=== PATIENT | male | born 1945 | race Two or more races ===

== ENCOUNTER 2023-06-04 11:00 | Outpatient (CLI) | payer OTHER ==
[~2023-06-04] VITALS: Ht 177.8 cm; Wt 106.6 kg
[2023-06-04] MEDS ORDERED: CHOL200021 PO (16:12)
[2023-06-04] MEDS ORDERED: OMEP20TA PO (16:12)
[2023-06-04] MEDS ORDERED: RAME8TAB17 PO (16:12)
[2023-06-04] MEDS ORDERED: TAMS0.4C36 PO (16:12)
[2023-06-04] MEDS ORDERED: GABA-1250 PO (16:12)
[2023-06-04] MEDS ORDERED: METF-370 PO (16:12)
[2023-06-04] MEDS ORDERED: TRIATAB3 OR (16:12)
[2023-06-04] MEDS ORDERED: LOSA25TA15 PO (16:12)
== END 2023-06-04 12:04 | disposition home or self-care (01) ==
LOC: LAB 11:00 → EDSTATUS 06-08 13:15
PROVIDERS: ATTEND Orthopaedic Surgery
DX: Z01.818 Encounter for other preprocedural examination (principal); Z96.652 Presence of left artificial knee joint
CPT/HCPCS: 86850; 86900; 86901

== ENCOUNTER 2023-08-04 10:40 | Observation (INO) | payer OTHER, MEDICAID ==
[~2023-08-04] VITALS: Ht 177.8 cm; Wt 104.0 kg
[~2023-08-04 10:40] MED LIST: CHOL200021 PO; GABA-1250 PO; LOSA25TA15 PO; METF-370 PO; OMEP20TA PO; RAME8TAB17 PO; TAMS0.4C36 PO; TRIATAB3 OR
[2023-08-04 11:29] LABS: Basophils # (auto) 0 10 ^3/uL (0-0.2); Basophils % (auto) 0.4 % (0.0-2.0); Eosinophils # (auto) 0.1 10 ^3/uL (0-0.8); Hematocrit 35.5 % (41.0-53.0); Hemoglobin 12.2 g/dL (13.5-17.5); Lymphocytes # (auto) 0.9 10 ^3/uL (0.4-5.4); Lymphocytes % (auto) 8.1 % (10.0-50.0); Mean Corpuscular Hgb Conc. 34.3 g/dL (32.0-36.0); Mean Corpuscular Volume 99.1 fL (80.0-100.0); Monocytes # (auto) 0.9 10 ^3/uL (0-1.3); Monocytes % (auto) 8.5 % (0.0-12.0); Neutrophils # (auto) 8.9 10 ^3/uL (1.6-8.6); Red Blood Cells 3.58 10^6/uL (4.5-5.90); Red Cell Distribution Width 13.7 % (11.8-14.3); White Blood Cell 10.8 10^3/uL (4.4-10.8)
[2023-08-04] MEDS ORDERED: SODIUM CHLORIDE 0.9% 1,000 ML IVB ONE (11:30)
[2023-08-04 11:45] LABS: Magnesium 1.7 mg/dL (1.6-2.6)
[2023-08-04 11:46] LABS: Alanine Aminotransferase 12 U/L (7-40); Alkaline Phosphatase 65 U/L (46-116); Anion Gap 11 (5-15); Aspartate Aminotransferase 13 U/L (13-40); BUN/Creatinine Ratio 25.2 (10.0-20.0); Calcium 8.2 mg/dL (8.7-10.4); Carbon Dioxide 17 mmol/L (20-30); Chloride 100 mmol/L (98-107); Glucose 127 mg/dL (74-106); Potassium 2.9 mmol/L (3.5-5.1); Sodium 128 mmol/L (136-145)
[2023-08-04 11:47] LABS: Albumin 4.2 g/dL (3.2-4.8); Bilirubin, Total 1.2 mg/dL (0.2-1.0); Total Protein 7.1 g/dL (5.7-8.2)
[2023-08-04 12:00] VITALS: PULSE 73; RESP 12; O2SAT 98
[2023-08-04 12:14] LABS: Blood Urea Nitrogen 82 mg/dL (9-23)
[2023-08-04] MEDS ORDERED: SODIUM CHLORIDE 0.9% 1,000 ML IV SCH (13:30)
[2023-08-04] MEDS ORDERED: PANTOPRAZOLE 40mg/50ML NS AE 50 ML IV ONE (13:30)
[2023-08-04] MEDS ORDERED: PANTOPRAZOLE 80 MG in SODIUM CHL 0.9% 100 ML IV ONE (13:30)
[2023-08-04] MEDS ORDERED: OCTREOTIDE ACETATE 100 MCG in SODIUM CHL 0.9% 50 ML IV ONE (13:30)
[2023-08-04] MEDS ORDERED: metroNIDAZOLE 500MG/100ML 100 ML IV ONE (13:45)
[2023-08-04 14:34] LABS: % Iron Saturation 20.8 % (20-55)
[2023-08-04] MEDS: OCTREOTIDE ACETATE 500 MCG in SODIUM CHL 0.9% 99 ML IV SCH (15:55)
[2023-08-04] MEDS ORDERED: ACETAMINOPHEN 325 MG TAB PO PRN (16:00)
[2023-08-04] MEDS ORDERED: cefTRIAXone 1GM/50ML D5W 50 ML IV SCH (19:00)
[2023-08-04 20:00] VITALS: PULSE 70; RESP 13; O2SAT 96
[2023-08-04] MEDS ORDERED: POTASSIUM CHL 20MEQ/100ML 100 ML IV ONE (21:00)
[2023-08-04 21:07] LABS: Rapid Influenza A Negative (Negative); Rapid Influenza B Negative (Negative)
[2023-08-04 21:08] LABS: COVID19 ANTIGEN SOFIA FIA NEGATIVE (NEGATIVE)
[2023-08-04] MEDS: SODIUM CHLORIDE 0.9% 1,000 ML IV SCH (21:32)
[2023-08-04] MEDS ORDERED: PIPERACILLIN-TAZOB 3.375GM 100 ML IV SCH (21:45)
[2023-08-04] MEDS ORDERED: PIPERACILLIN-TAZOB 3.375GM 100 ML IV ONE (22:15)
[2023-08-04 22:20] LABS: Urine Bacteria NONE SEEN /hpf (None Seen); Urine Blood Negative /uL (Negative); Urine Clarity Clear (Clear); Urine Color Yellow (Yellow); Urine Hyaline Cast FEW /lpf (0 - 2); Urine Protein, UAD TRACE (Negative); Urine Specific Gravity 1.011 (1.001-1.035); Urine Urobilinogen Normal (Negative); Urine WBC 1 /hpf (0 - 3)
[2023-08-04] MEDS: OSELTAMIVIR 75 MG CAP PO SCH (22:22)
[2023-08-04] MEDS: GABAPENTIN 300 MG CAP PO SCH (22:23)
[2023-08-04 22:29] LABS: INR 1.12 (0.9-1.15); Prothrombin Time 11.7 sec (9.3-11.8)
[2023-08-04 22:44] VITALS: BP 99/69; PULSE 71; RESP 20; O2SAT 96
[2023-08-05] VITALS (7 sets, daily range): BP systolic 86–114; BP diastolic 61–73; PULSE 70–93; RESP 12–20; TEMP 97.7–98.1; O2SAT 93–100
[2023-08-05] MEDS ORDERED: OCTREOTIDE ACETATE 500 MCG/ML VL ONE (00:01)
[2023-08-05] MEDS: OCTREOTIDE ACETATE 500 MCG in SODIUM CHL 0.9% 99 ML IV SCH ×3 (00:13→19:30)
[2023-08-05 00:18] LABS: Alanine Aminotransferase 11 U/L (7-40); Albumin 3.9 g/dL (3.2-4.8); Alkaline Phosphatase 65 U/L (46-116); Anion Gap 12 (5-15); Aspartate Aminotransferase 12 U/L (13-40); BUN/Creatinine Ratio 25.8 (10.0-20.0); Blood Urea Nitrogen 73 mg/dL (9-23); Calcium 8.1 mg/dL (8.7-10.4); Carbon Dioxide 16 mmol/L (20-30); Chloride 103 mmol/L (98-107); Glucose 130 mg/dL (74-106); Potassium 2.7 mmol/L (3.5-5.1); Sodium 131 mmol/L (136-145)
[2023-08-05 00:19] LABS: Bilirubin, Total 1.5 mg/dL (0.2-1.0); Total Protein 6.8 g/dL (5.7-8.2)
[2023-08-05] MEDS ORDERED: POTASSIUM EFFERVESENT TAB 25 MEQ PO ONE (00:45)
[2023-08-05] MEDS ORDERED: POTASSIUM CHL 20MEQ/100ML 100 ML IV ONE ×2 (00:45→22:45)
[2023-08-05] MEDS ORDERED: SODIUM CHLORIDE 0.9% 1,000 ML IV ONE ×2 (05:15→18:00)
[2023-08-05] MEDS: PIPERACILLIN-TAZOB 3.375GM 100 ML IV SCH ×2 (05:38→13:59)
[2023-08-05 06:50] LABS: Alanine Aminotransferase 10 U/L (7-40); Albumin 3.8 g/dL (3.2-4.8); Alkaline Phosphatase 64 U/L (46-116); Anion Gap 10 (5-15); Aspartate Aminotransferase 13 U/L (13-40); BUN/Creatinine Ratio 31.2 (10.0-20.0); Blood Urea Nitrogen 68 mg/dL (9-23); Carbon Dioxide 18 mmol/L (20-30); Chloride 105 mmol/L (98-107); Glucose 132 mg/dL (74-106); Magnesium 1.8 mg/dL (1.6-2.6); Potassium 3.7 mmol/L (3.5-5.1); Sodium 133 mmol/L (136-145)
[2023-08-05 06:51] LABS: Bilirubin, Total 1.9 mg/dL (0.2-1.0); Total Protein 6.6 g/dL (5.7-8.2)
[2023-08-05 06:57] LABS: Mean Corpuscular Hemoglobin 35.3 pg (28.0-32.0); Neutrophils # (auto) 7.1 10 ^3/uL (1.6-8.6)
[2023-08-05 07:00] LABS: Basophils # (auto) 0 10 ^3/uL (0-0.2); Basophils % (auto) 0.5 % (0.0-2.0); Eosinophils # (auto) 0.2 10 ^3/uL (0-0.8); Eosinophils % (auto) 2.5 % (0.0-7.0); Hemoglobin 11.8 g/dL (13.5-17.5); Lymphocytes # (auto) 1.3 10 ^3/uL (0.4-5.4); Lymphocytes % (auto) 13.4 % (10.0-50.0); Mean Corpuscular Hgb Conc. 34.7 g/dL (32.0-36.0); Mean Corpuscular Volume 101.8 fL (80.0-100.0); Monocytes % (auto) 10.2 % (0.0-12.0); Neutrophils % (auto) 73.4 % (37.0-80.0); Nucleated Red Blood Cells % 0.1 %; Red Blood Cells 3.34 10^6/uL (4.5-5.90); White Blood Cell 9.7 10^3/uL (4.4-10.8)
[2023-08-05] MEDS: OSELTAMIVIR 75 MG CAP PO SCH ×2 (09:38→22:56)
[2023-08-05] MEDS: SODIUM CHLORIDE 0.9% 1,000 ML IV SCH ×2 (09:44→17:36)
[2023-08-05] MEDS: PANTOPRAZOLE 40mg/50ML NS AE 50 ML IV SCH ×2 (17:26→22:56)
[2023-08-05] MEDS ORDERED: TAMSULOSIN HYDROCHLORIDE 0.4 MG CAP PO SCH (18:00)
[2023-08-05] MEDS ORDERED: METR-344 PO (18:00)
[2023-08-05] MEDS ORDERED: LEVO750T8 PO (18:00)
[2023-08-05 20:05] LABS: Chloride 106 mmol/L (98-107); Potassium 2.9 mmol/L (3.5-5.1); Sodium 133 mmol/L (136-145)
[2023-08-05 20:06] LABS: Anion Gap 9 (5-15); Calcium 8.3 mg/dL (8.7-10.4); Carbon Dioxide 18 mmol/L (20-30)
[2023-08-05 20:11] LABS: BUN/Creatinine Ratio 26.9 (10.0-20.0); Glucose 180 mg/dL (74-106)
[2023-08-05 20:49] LABS: Eosinophils # (auto) 0.2 10 ^3/uL (0-0.8); Hemoglobin 11.8 g/dL (13.5-17.5); Neutrophils # (auto) 5.9 10 ^3/uL (1.6-8.6); Nucleated Red Blood Cells % 0.1 %
[2023-08-05 20:51] LABS: Basophils # (auto) 0 10 ^3/uL (0-0.2); Basophils % (auto) 0.4 % (0.0-2.0); Eosinophils % (auto) 1.9 % (0.0-7.0); Hematocrit 33.7 % (41.0-53.0); Lymphocytes # (auto) 1.4 10 ^3/uL (0.4-5.4); Lymphocytes % (auto) 16.6 % (10.0-50.0); Mean Corpuscular Hemoglobin 35.6 pg (28.0-32.0); Mean Corpuscular Hgb Conc. 35.1 g/dL (32.0-36.0); Mean Corpuscular Volume 101.5 fL (80.0-100.0); Monocytes % (auto) 11.9 % (0.0-12.0); Neutrophils % (auto) 69.2 % (37.0-80.0); Red Blood Cells 3.32 10^6/uL (4.5-5.90); Red Cell Distribution Width 13.7 % (11.8-14.3); White Blood Cell 8.5 10^3/uL (4.4-10.8)
[2023-08-05 20:53] LABS: Blood Urea Nitrogen 53 mg/dL (9-23)
[2023-08-05 22:31] LABS: Creatinine, Urine 57.97 mg/dL (30.0-125.0)
[2023-08-05] MEDS ORDERED: POTASSIUM CHL 20 Meq TABLET PO ONE (22:45)
[2023-08-05] MEDS: GABAPENTIN 300 MG CAP PO SCH (22:56)
[2023-08-06] MEDS: PIPERACILLIN-TAZOB 3.375GM 100 ML IV SCH ×3 (00:32→14:00)
[2023-08-06] MEDS: SODIUM CHLORIDE 0.9% 1,000 ML IV SCH ×2 (03:15→13:30)
[2023-08-06] MEDS: PANTOPRAZOLE 40mg/50ML NS AE 50 ML IV SCH (03:15)
[2023-08-06 05:00] VITALS: BP 123/85; PULSE 70; RESP 16; TEMP 98.2; O2SAT 97
[2023-08-06 05:37] LABS: Basophils # (auto) 0 10 ^3/uL (0-0.2); Basophils % (auto) 0.5 % (0.0-2.0); Eosinophils # (auto) 0.2 10 ^3/uL (0-0.8); Eosinophils % (auto) 1.9 % (0.0-7.0); Hemoglobin 11.4 g/dL (13.5-17.5); Monocytes # (auto) 1.1 10 ^3/uL (0-1.3); Nucleated Red Blood Cells % 0.1 %
[2023-08-06 05:41] LABS: Hematocrit 32.8 % (41.0-53.0); Lymphocytes # (auto) 1.7 10 ^3/uL (0.4-5.4); Lymphocytes % (auto) 19.2 % (10.0-50.0); Mean Corpuscular Hemoglobin 34.8 pg (28.0-32.0); Mean Corpuscular Hgb Conc. 34.9 g/dL (32.0-36.0); Mean Corpuscular Volume 99.8 fL (80.0-100.0); Monocytes % (auto) 12.1 % (0.0-12.0); Neutrophils % (auto) 66.3 % (37.0-80.0); Red Blood Cells 3.28 10^6/uL (4.5-5.90); Red Cell Distribution Width 14.1 % (11.8-14.3); White Blood Cell 9.1 10^3/uL (4.4-10.8)
[2023-08-06 05:59] LABS: Alanine Aminotransferase 11 U/L (7-40); Albumin 3.7 g/dL (3.2-4.8); Alkaline Phosphatase 62 U/L (46-116); Anion Gap 11 (5-15); Aspartate Aminotransferase 13 U/L (13-40); BUN/Creatinine Ratio 24.2 (10.0-20.0); Calcium 8.5 mg/dL (8.5-10.1); Carbon Dioxide 17 mmol/L (20-30); Chloride 107 mmol/L (98-107); Glucose 135 mg/dL (74-106); Potassium 3.1 mmol/L (3.5-5.1); Sodium 135 mmol/L (136-145)
[2023-08-06 06:00] LABS: Bilirubin, Total 1.2 mg/dL (0.2-1.0); Total Protein 6.4 g/dL (5.7-8.2)
[2023-08-06 06:19] LABS: Blood Urea Nitrogen 39 mg/dL (9-23)
[2023-08-06] MEDS ORDERED: POTASSIUM CHL 20 Meq TABLET PO ONE (06:45)
[2023-08-06] MEDS ORDERED: OMEP20TA44 PO (07:27)
[2023-08-06 08:00] VITALS: BP 112/76; PULSE 76; PULSE 94; RESP 12; RESP 18; TEMP 97.8; O2SAT 100
[2023-08-06 09:00] VITALS: BP 107/76; PULSE 72; RESP 22; TEMP 97.4; O2SAT 97
[2023-08-06] MEDS ORDERED: diphenhdrAMINE HCL 50 MG/1 ML VL ONE (09:32)
[2023-08-06] MEDS ORDERED: LIDOCAINE VISCOUS 2% 15ML UD ONE (09:32)
[2023-08-06] MEDS ORDERED: MIDAZOLAM HCL 5 MG/ML-1ML VIAL ONE (09:32)
[2023-08-06] MEDS ORDERED: SODIUM CHLORIDE LOCK 10 ML ONE (09:32)
[2023-08-06] MEDS ORDERED: fentaNYL CITRATE 100 MCG/2 ML VL ONE (09:34)
[2023-08-06] MEDS ORDERED: PANTOPRAZOLE 40 MG TAB PO SCH (10:00)
[2023-08-06 12:16] VITALS: BP 114/73; PULSE 72; RESP 18; TEMP 97.3; O2SAT 95
[2023-08-06 13:00] VITALS: BP 119/70; PULSE 72; RESP 18; TEMP 97.3; O2SAT 95
== END 2023-08-06 14:00 | disposition home or self-care (01) ==
LOC: EDBD 10:40 → ER 10:40 → TELE 13:23 → TELE-WESTW 22:37
PROVIDERS: ADMIT Student in an Organized Health Care Education/Training Program; ATTEND Student in an Organized Health Care Education/Training Program
DX: K92.0 Hematemesis (principal); Z20.822 Contact with and (suspected) exposure to COVID-19; E80.6 Other disorders of bilirubin metabolism; I71.20 Thoracic aortic aneurysm, without rupture, unspecified; I95.9 Hypotension, unspecified; N40.0 Benign prostatic hyperplasia without lower urinary tract symptoms; K57.32 Diverticulitis of large intestine without perforation or abscess without bleeding; J10.1 Influenza due to other identified influenza virus with other respiratory manifestations; N17.9 Acute kidney failure, unspecified; D50.9 Iron deficiency anemia, unspecified; E86.0 Dehydration; I48.91 Unspecified atrial fibrillation; E87.6 Hypokalemia; E87.1 Hypo-osmolality and hyponatremia; K92.1 Melena; E11.42 Type 2 diabetes mellitus with diabetic polyneuropathy; K21.9 Gastro-esophageal reflux disease without esophagitis; M79.10 Myalgia, unspecified site; I10 Essential (primary) hypertension; Z79.84 Long term (current) use of oral hypoglycemic drugs; Z95.0 Presence of cardiac pacemaker
CPT/HCPCS: 36415; 71046; 74176; 80048; 80053; 81001; 82570; 82728; 83540; 83550; 83605; 83690; 83735; 84300; 85025; 85045; 85610; 86850; 86900; 86901; 86920; 87040; 87426; 87804; 96361; 96365; 96366; 96368; 96376; 99291; C9113; G0378; J1200; J2250; J2543; J3010; J3480; J3490; J7030

== ENCOUNTER 2023-09-18 02:09 | Emergency (ER) | payer OTHER, MEDICAID ==
[~2023-09-18] VITALS: Ht 182.9 cm; Wt 90.0 kg
[~2023-09-18 02:09] MED LIST changes: -OMEP20TA PO; +PANT40TA2 PO; -TRIATAB3 OR
[2023-09-18 03:23] LABS: Basophils # (auto) 0 10 ^3/uL (0-0.2); Eosinophils # (auto) 0 10 ^3/uL (0-0.8); Hemoglobin 12.5 g/dL (13.5-17.5); Mean Corpuscular Hemoglobin 34.2 pg (28.0-32.0); Mean Corpuscular Hgb Conc. 33.6 g/dL (32.0-36.0); Red Blood Cells 3.65 10^6/uL (4.5-5.90)
[2023-09-18 03:24] LABS: Basophils % (auto) 0.3 % (0.0-2.0); Hematocrit 37.1 % (41.0-53.0); Lymphocytes # (auto) 0.9 10 ^3/uL (0.4-5.4); Lymphocytes % (auto) 9.4 % (10.0-50.0); Mean Corpuscular Volume 101.7 fL (80.0-100.0); Monocytes # (auto) 0.7 10 ^3/uL (0-1.3); Neutrophils # (auto) 7.9 10 ^3/uL (1.6-8.6); Neutrophils % (auto) 83.3 % (37.0-80.0); Red Cell Distribution Width 14.3 % (11.8-14.3); White Blood Cell 9.5 10^3/uL (4.4-10.8)
[2023-09-18 03:45] VITALS: PULSE 70; RESP 18; O2SAT 96
[2023-09-18 04:02] LABS: Alanine Aminotransferase 17 U/L (7-40); Albumin 4.2 g/dL (3.2-4.8); Alkaline Phosphatase 56 U/L (46-116); Anion Gap 5 (5-15); Aspartate Aminotransferase 20 U/L (13-40); BUN/Creatinine Ratio 10.8 (10.0-20.0); Bilirubin, Total 0.8 mg/dL (0.2-1.0); Blood Urea Nitrogen 11 mg/dL (9-23); Calcium 8.8 mg/dL (8.7-10.4); Carbon Dioxide 26 mmol/L (20-30); Chloride 98 mmol/L (98-107); Glucose 155 mg/dL (74-106); Potassium 3.8 mmol/L (3.5-5.1); Sodium 129 mmol/L (136-145); Total Protein 7.6 g/dL (5.7-8.2)
[2023-09-18] MEDS ORDERED: ACETAMINOPHEN 500 MG TAB PO ONE (04:15)
[2023-09-18] MEDS ORDERED: methylPREDNISolone SOD SUCC 125 MG/2 ML VL IV ONE (04:30)
[2023-09-18] MEDS ORDERED: ONDANSETRON HCL 4 MG/2 ML VIAL IV ONE (04:30)
[2023-09-18] MEDS ORDERED: AZITHROMYCIN 500MG/ 250ML 250 ML IV ONE (04:30)
[2023-09-18] MEDS ORDERED: IBUPROFEN 400 MG TAB PO ONE (04:30)
[2023-09-18] MEDS ORDERED: PANTOPRAZOLE 40 MG/10 ML VIAL INJ IV ONE (04:30)
[2023-09-18] MEDS ORDERED: guaiFENesin-DM 100/10mg/5ml SYR PO ONE (04:30)
[2023-09-18] MEDS ORDERED: IPRATROPIUM BROM 0.5 MG/2.5ML INH SOL NEB ONE (04:30)
[2023-09-18] MEDS ORDERED: SODIUM CHLORIDE 0.9% 2,700 ML IV ONE (04:30)
[2023-09-18] MEDS ORDERED: ALBUTEROL SULF 2.5 MG/0.5ML(0.5%) NEB SOLN NEB ONE (04:30)
[2023-09-18] MEDS ORDERED: cefTRIAXone 1GM/50ML D5W 50 ML IV SCH (05:00)
[2023-09-18 05:20] LABS: Base Excess -0.6 mmol/L (-2.0-2.0)
[2023-09-18 05:25] LABS: INR 1.11 (0.9-1.15); Prothrombin Time 11.6 sec (9.3-11.8)
[2023-09-18] MEDS ORDERED: VANCOMYCIN 1GM/200ML 200 ML IV ONE (06:00)
[2023-09-18 06:57] VITALS: TEMP 99.3
[2023-09-18 07:30] VITALS: PULSE 70; RESP 20; O2SAT 96
[2023-09-18] MEDS ORDERED: MAGNESIUM SULFATE 1GM/100ML 100 ML IV ONE (08:00)
[2023-09-18] MEDS ORDERED: VANCOMYCIN PER PHARMACY 0 MG IV SCH (09:00)
[2023-09-18 09:20] LABS: Rapid Influenza A Negative (Negative); Rapid Influenza B Negative (Negative)
[2023-09-18 09:25] LABS: COVID19 ANTIGEN SOFIA FIA POSITIVE (NEGATIVE)
[2023-09-18] MEDS ORDERED: ALBU108A5 IN (09:44)
[2023-09-18] MEDS ORDERED: AZITTAB2 PO (09:44)
[2023-09-18] MEDS ORDERED: METH4PAK PO (09:44)
[2023-09-18] MEDS ORDERED: VANCOMYCIN 1GM/200ML 200 ML IV SCH (10:00)
[2023-09-18 13:00] VITALS: BP 129/83; PULSE 70; RESP 18; O2SAT 96
== END 2023-09-18 14:10 | disposition home or self-care (01) ==
LOC: ER 02:09 → EDBD 02:09 → ER 14:10
DX: U07.1 COVID-19 (principal); R50.9 Fever, unspecified; E87.1 Hypo-osmolality and hyponatremia; E83.42 Hypomagnesemia; R09.02 Hypoxemia; E11.9 Type 2 diabetes mellitus without complications; R07.89 Other chest pain; I10 Essential (primary) hypertension; E78.5 Hyperlipidemia, unspecified; Z95.0 Presence of cardiac pacemaker; Z79.2 Long term (current) use of antibiotics; Z79.899 Other long term (current) drug therapy
CPT/HCPCS: 36415; 36600; 70450; 71045; 80053; 82805; 83605; 83735; 83880; 84484; 85025; 85610; 85730; 87040; 87426; 87804; 93005; 94640; 96365; 96367; 96375; 99285; C9113; J0456; J0696; J2405; J2930; J3370; J3475; J7644

== ENCOUNTER 2024-02-08 06:20 | Inpatient (IN) | payer OTHER, MEDICAID ==
[~2024-02-08] VITALS: Ht 170.2 cm; Wt 119.1 kg
[~2024-02-08 06:20] MED LIST changes: +LOSA-533 PO; -LOSA25TA15 PO; -RAME8TAB17 PO
[2024-02-08] MEDS: ceFAZolin 2 GM/D5W50ml 50 ML IV ONE (06:33)
[2024-02-08] MEDS: ACETAMINOPHEN IV 100 ML IV ONE (06:50)
[2024-02-08] MEDS: ACETAMINOPHEN IV 1000 MG/100ML (10MG/ML) IV ONE (07:00)
[2024-02-08] MEDS: ACCU-CHEK COMFORT CURVE STRIP VI ONE (07:00)
[2024-02-08] MEDS ORDERED: hydrALAZINE HCL 20 MG/ML VL IV PRN (07:00)
[2024-02-08] MEDS ORDERED: fentaNYL CITRATE 100 MCG/2 ML VL IV PRN (07:00)
[2024-02-08] MEDS ORDERED: LABETALOL HCL 5 MG/ML 4ML SYRINGE IV PRN (07:00)
[2024-02-08] MEDS ORDERED: ePHEDrine SULFATE 50 MG/ML AMP IV PRN (07:00)
[2024-02-08] MEDS ORDERED: HYDROmorphone HCL 2 MG/ML VL/or syr IV PRN (07:00)
[2024-02-08] MEDS: VANCOMYCIN HCL 1000 MG VL ONE (07:13)
[2024-02-08] MEDS: ROPIVACAINE 0.5% (5MG/ML) 20ML AMPULE IJ ONE ×3 (07:19→09:00)
[2024-02-08] MEDS ORDERED: fentaNYL CITRATE 100 MCG/2 ML VL ONE (07:23)
[2024-02-08] MEDS ORDERED: MIDAZOLAM HCL 2MG/2ML 2ml VIAL (1mg/ml) ONE (07:23)
[2024-02-08] MEDS ORDERED: PROPOFOL 10 MG/ML 20 ML IV ONE (07:24)
[2024-02-08] MEDS ORDERED: ePHEDrine SULFATE 50 MG/ML AMP ONE (07:27)
[2024-02-08] MEDS ORDERED: TRANEXAMIC ACID 10 ML ONE ×2 (07:40→08:41)
[2024-02-08] MEDS ORDERED: HYDROmorphone HCL 2 MG/ML VL/or syr ONE (08:07)
[2024-02-08] MEDS ORDERED: DexAMETHasone SOD PHOS 10MG/1ML VIAL INJ ONE (08:27)
[2024-02-08] MEDS ORDERED: NITROGLYCERIN 0.4 MG SL TAB SL PRN (09:30)
[2024-02-08] MEDS ORDERED: MORPHINE SULFATE INJ 2 MG/ml SYRG IV PRN (09:30)
[2024-02-08 09:47] VITALS: O2SAT 98
[2024-02-08] MEDS: metFORMIN HYDROCHLORIDE 500 MG TAB PO SCH (10:00)
[2024-02-08] MEDS: PANTOPRAZOLE 40 MG TAB PO SCH (10:00)
[2024-02-08] MEDS: TAMSULOSIN HYDROCHLORIDE 0.4 MG CAP PO SCH (10:00)
[2024-02-08] MEDS: HYDROmorphone HCL 2 MG/ML VL/or syr ONE (10:10)
[2024-02-08] MEDS: HYDROmorphone HCL 2 MG/ML VL/or syr IV PRN (10:13)
[2024-02-08] MEDS ORDERED: oxyCODONE HCL 5MG TAB PO PRN (11:30)
[2024-02-08] MEDS: ACETAMINOPHEN 325 MG TAB PO SCH (12:00)
[2024-02-08] MEDS: SODIUM CHLORIDE 0.9% 1,000 ML IV SCH (12:40)
[2024-02-08] MEDS ORDERED: ceFAZolin 2 GM/D5W50ml 50 ML IV SCH (14:00)
[2024-02-08] MEDS: ceFAZolin 2 GM/D5W50ml 50 ML IV SCH ×2 (15:30→23:40)
[2024-02-08 16:18] VITALS: BP 176/101; PULSE 70; RESP 17; TEMP 98.7; O2SAT 98
[2024-02-08 16:49] VITALS: BP 176/101; PULSE 70; RESP 17; TEMP 98.6; O2SAT 97
[2024-02-08] MEDS: ONDANSETRON HCL 4 MG/2 ML VIAL IV PRN (16:56)
[2024-02-08] MEDS: oxyCODONE HCL 5MG TAB PO PRN (16:56)
[2024-02-08 18:02] VITALS: BP 148/72
[2024-02-08 20:00] VITALS: PULSE 70
[2024-02-08 21:00] VITALS: BP 139/71; PULSE 70; RESP 18; TEMP 98.2; O2SAT 92
[2024-02-08] MEDS: GABAPENTIN 300 MG CAP PO SCH (22:10)
[2024-02-08] MEDS: LOSARTAN POTASSIUM 25 MG TAB PO SCH (22:10)
[2024-02-09] VITALS (7 sets, daily range): BP systolic 132–158; BP diastolic 87–94; PULSE 66–80; RESP 16–20; TEMP 98.1–98.5; O2SAT 91–97
[2024-02-09 06:45] LABS: Basophils # (auto) 0 10 ^3/uL (0-0.2); Eosinophils # (auto) 0 10 ^3/uL (0-0.8); Mean Corpuscular Hgb Conc. 34.2 g/dL (32.0-36.0)
[2024-02-09 06:50] LABS: Hematocrit 32.9 % (41.0-53.0); Hemoglobin 11.3 g/dL (13.5-17.5); Lymphocytes # (auto) 0.8 10 ^3/uL (0.4-5.4); Lymphocytes % (auto) 6.6 % (10.0-50.0); Mean Corpuscular Hemoglobin 34.7 pg (28.0-32.0); Mean Corpuscular Volume 101.4 fL (80.0-100.0); Monocytes % (auto) 8.2 % (0.0-12.0); Neutrophils # (auto) 10.1 10 ^3/uL (1.6-8.6); Neutrophils % (auto) 85.2 % (37.0-80.0); Red Blood Cells 3.24 10^6/uL (4.5-5.90); Red Cell Distribution Width 13.9 % (11.8-14.3); White Blood Cell 11.9 10^3/uL (4.4-10.8)
[2024-02-09 06:58] LABS: Chloride 103 mmol/L (98-107); Potassium 4.1 mmol/L (3.5-5.1); Sodium 134 mmol/L (136-145)
[2024-02-09 07:00] LABS: Anion Gap 5 (5-15); Carbon Dioxide 26 mmol/L (20-30)
[2024-02-09 07:05] LABS: Blood Urea Nitrogen 17 mg/dL (9-23); Glucose 132 mg/dL (74-106)
[2024-02-09] MEDS: ceFAZolin 2 GM/D5W50ml 50 ML IV SCH (08:00)
[2024-02-09] MEDS: ASPirin-EC 81 mg tab PO SCH (09:25)
== END 2024-02-09 16:26 | disposition home or self-care (01) | DRG 470 ==
LOC: SUR 06:20 → OVERFLOW 09:27 → TELE 13:41 → WEST WING 16:25
PROVIDERS: ADMIT Orthopaedic Surgery; ATTEND Orthopaedic Surgery
PROC: 0SRD069 Replacement of Left Knee Joint with Oxidized Zirconium on Polyethylene Synthetic Substitute, Cemented, Open Approach (ICD-10-PCS; principal; 2024-02-08 07:26)
DX: M17.12 Unilateral primary osteoarthritis, left knee (principal); Z68.41 Body mass index [BMI] 40.0-44.9, adult; E66.01 Morbid (severe) obesity due to excess calories
CPT/HCPCS: 0055T; 27488; 27599; 36415; 73560; 80048; 82962; 85025; 86850; 86900; 86901; 97110; 97116; 97163; 97530; G0378; J0131; J1100; J2250; J2405; J2704

== ENCOUNTER 2024-03-03 12:23 | Emergency (ER) | payer OTHER, MEDICAID ==
[~2024-03-03] VITALS: Ht 177.8 cm; Wt 110.0 kg
[2024-03-03 14:34] LABS: Basophils # (auto) 0.1 10 ^3/uL (0-0.2); Basophils % (auto) 0.8 % (0.0-2.0); Eosinophils # (auto) 0.1 10 ^3/uL (0-0.8); Eosinophils % (auto) 1.3 % (0.0-7.0); Hematocrit 33.4 % (41.0-53.0); Hemoglobin 11.4 g/dL (13.5-17.5); Lymphocytes # (auto) 1.5 10 ^3/uL (0.4-5.4); Lymphocytes % (auto) 20.4 % (10.0-50.0); Mean Corpuscular Hemoglobin 33.8 pg (28.0-32.0); Mean Corpuscular Volume 99.4 fL (80.0-100.0); Monocytes # (auto) 0.7 10 ^3/uL (0-1.3); Monocytes % (auto) 8.7 % (0.0-12.0); Neutrophils # (auto) 5.2 10 ^3/uL (1.6-8.6); Neutrophils % (auto) 68.8 % (37.0-80.0); Nucleated Red Blood Cells % 0.1 %; Red Blood Cells 3.36 10^6/uL (4.5-5.90); Red Cell Distribution Width 14.1 % (11.8-14.3); White Blood Cell 7.6 10^3/uL (4.4-10.8)
[2024-03-03 14:43] LABS: Chloride 98 mmol/L (98-107); Potassium 4.6 mmol/L (3.5-5.1); Sodium 129 mmol/L (136-145)
[2024-03-03 14:44] LABS: Anion Gap 5 (5-15); Calcium 9.9 mg/dL (8.7-10.4); Carbon Dioxide 26 mmol/L (20-30)
[2024-03-03 14:49] LABS: BUN/Creatinine Ratio 19.6 (10.0-20.0); Blood Urea Nitrogen 22 mg/dL (9-23); Glucose 107 mg/dL (74-106)
[2024-03-03 16:38] VITALS: BP 138/85; RESP 18; TEMP 97.8; O2SAT 98
[2024-03-03 16:41] VITALS: PULSE 70
== END 2024-03-03 17:10 | disposition home or self-care (01) ==
LOC: ER 12:23
DX: I95.9 Hypotension, unspecified (principal); R55 Syncope and collapse; R53.1 Weakness; E11.9 Type 2 diabetes mellitus without complications; Z95.0 Presence of cardiac pacemaker; Z86.2 Personal history of diseases of the blood and blood-forming organs and certain disorders involving the immune mechanism
CPT/HCPCS: 36415; 71046; 80048; 84484; 85025; 93005

== ENCOUNTER 2024-04-20 20:30 | Emergency (ER) | payer OTHER, MEDICAID ==
[~2024-04-20] VITALS: Ht 180.3 cm; Wt 110.1 kg
[~2024-04-20 20:30] MED LIST changes: -TAMS0.4C36 PO; +TAMS0.4C39 PO
[2024-04-20 23:40] VITALS: BP 151/101; TEMP 97.3
[2024-04-21 00:03] VITALS: PULSE 71; RESP 18; O2SAT 99
== END 2024-04-21 02:29 | disposition home or self-care (01) ==
LOC: ER 20:30
DX: S16.1XXA Strain of muscle, fascia and tendon at neck level, initial encounter (principal); S29.012A Strain of muscle and tendon of back wall of thorax, initial encounter; S80.02XA Contusion of left knee, initial encounter; E11.9 Type 2 diabetes mellitus without complications; I10 Essential (primary) hypertension; W18.09XA Striking against other object with subsequent fall, initial encounter; Y93.89 Activity, other specified; Y92.89 Other specified places as the place of occurrence of the external cause; Y99.8 Other external cause status
CPT/HCPCS: 72040; 72070; 73010; 73562

== ENCOUNTER 2024-07-31 19:53 | Emergency (ER) | payer OTHER, MEDICAID ==
[~2024-07-31] VITALS: Ht 177.8 cm; Wt 109.9 kg
[2024-07-31 20:25] VITALS: BP 149/94; PULSE 70; RESP 20; O2SAT 96
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
[2024-07-31] MEDS ORDERED: HYDROcodone-ACET 5/325MG TAB PO ONE (21:00)
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
== END 2024-08-01 02:43 | disposition home or self-care (01) ==
LOC: ER 20:00
DX: M48.00 Spinal stenosis, site unspecified (principal); M54.9 Dorsalgia, unspecified; I10 Essential (primary) hypertension; E11.9 Type 2 diabetes mellitus without complications; D64.9 Anemia, unspecified; Z79.84 Long term (current) use of oral hypoglycemic drugs; Z79.899 Other long term (current) drug therapy; Z98.890 Other specified postprocedural states; V89.2XXA Person injured in unspecified motor-vehicle accident, traffic, initial encounter; Y93.I9 Activity, other involving external motion; Y92.488 Other paved roadways as the place of occurrence of the external cause; Y99.8 Other external cause status
CPT/HCPCS: 72128; 72131

== ENCOUNTER 2025-03-03 19:17 | Emergency (ER) | payer OTHER, MEDICAID ==
[~2025-03-03] VITALS: Ht 170.2 cm; Wt 109.8 kg
--- NOTE | 2025-03-03 19:27 | ED.PDOC ---
Back pain HPI HPI Comments Pt arrived in ER due to mechanical fall today at restaurant. Denies head injury or LOC. Pt VSS. Pt C/O bilater knee pain and right hip pain 02/06. No deformities or swelling present Time Seen by MD: 19:25 Primary Care Provider: ONEIDA Reviewed Notes: Nurses Notes, Medications, Allergies Allergies: Coded Allergies: NO KNOWN ALLERGIES (Unverified , 06/04/23) Home Meds Active Scripts Pantoprazole Sodium Sesquihydr (Protonix) 40 Mg Tab, 40 MG PO BID, #180 TAB 3 Refills Prov:SHEILA BACON DO 08/27/23 Reported Medications Cholecalciferol (D3) Unknown Strength Tab, PO DAILY, TAB 06/04/23 Metformin Hydrochloride (Metformin Hcl) 500 Mg Tab, 500 MG PO BID, TAB 06/04/23 Tamsulosin Hcl (Tamsulosin Hcl) 0.4 Mg Cap, 0.4 MG PO DAILY, CAP 06/04/23 Gabapentin (Gabapentin) 300 Mg Cap, 300 MG PO HS, CAP 06/04/23 Losartan Potassium (Losartan Potassium) 25 Mg Tab, 12.5 MG PO HS, TAB 06/04/23 Information Source: Patient Past Medical History PAST MEDICAL HISTORY: Anemia, DM, HTN Surgical History: Pacemaker Family History Family History: Reviewed,noncontributory to illness, Unknown Social History Smoker: Non-Smoker Alcohol: Denies ETOH Use Drugs: Denies Drug Use Lives In: Home Constitutional: denies: chills, diaphoresis, fatigue, fever, malaise, sweats, weakness, others EENTM: denies: blurred vision, double vision, ear bleeding, ear discharge, ear drainage, ear pain, ear ringing, eye pain, eye redness, hearing loss, mouth pain, mouth swelling, nasal discharge, nose bleeding, nose congestion, nose pain, photophobia, tearing, throat pain, throat swelling, voice changes, others Respiratory: denies: cough, hemoptysis, orthopnea, SOB at rest, shortness of breath, SOB with excertion, stridor, wheezing, others Cardiovascular: denies: chest pain, dizzy spells, diaphoresis, Dyspnea on exertion, edema, irregular heart beat, left arm pain, lightheadedness, palpitations, PND, syncope, others Gastrointestinal: denies: abdomen distended, abdominal pain, blood streaked bowels, constipated, diarrhea, dysphagia, difficulty swallowing, hematemesis, melena, nausea, poor appetite, poor fluid intake, rectal bleeding, rectal pain, vomiting, others Genitourinary: denies: burning, dysuria, flank pain, frequency, hematuria, incontinence, penile discharge, penile sore, pain, testicle pain, testicle swelling, urgency, others Neurological: denies: dizziness, fainting, headache, left sided numbness, left sided weakness, numbness, paresthesia, pre-existing deficit, right sided numbness, right sided weakness, seizure, speech problems, tingling, tremors, w eakness, others Musculoskeletal: reports: joint pain; denies: back pain, gout, joint swelling, muscle pain, muscle stiffness, neck pain, others Integumetry: denies: bruises, change in color, change in hair/nails, dryness, laceration, lesions, lumps, rash, wounds, others Allergic/Immunocompromised: denies: Difficulty Healing, Frequent Infections, Hives, Itching, others Hematologic/Lymphatic: denies: anemia, blood clots, easy bleeding, easy bruising, swollen glands, others Endocrine: denies: excessive hunger, excessive sweating, excessive thirst, excessive urination, flushing, intolerance to cold, intolerance to heat, unexplained weight gain, unexplained weight loss, others Psychiatric: denies: anxiety, bipolar disorder, depression, hopeless, panic disorder, schizophrenia, sleepless, suicidal, others Physical Exam General Appearance: No Apparent Distress, Normal HEENT: Pharynx Normal Neck: Full Range of Motion, Non-Tender Respiratory: Lungs Clear, No Respiratory Distress, Normal Breath Sounds Cardiovascular: No Edema, No JVD, No Murmur, No Gallop, Normal Peripheral Pulses, Regular Rate/Rhythm Breast Exam: Deferred Gastrointestinal: No Organomegaly, Non Tender, No Pulsatile Mass, Normal Bowel Sounds, Soft Genitalia: Deferred Pelvic: Deferred Rectal: Deferred Extremities: Normal capillary refill, Normal inspection, Normal range of motion, Non-tender, No pedal edema Musculoskeletal : Location: Bilateral Extremity Location: Knee (TENDERNESS PALPATED OVER ANTERIOR KNEE NO NOTED ECCHYMOSIS OR ABRASIONS OR LACERATIONS NO NOTED EDEMA OR BALLOTTEMENT NEGATIVE ABIGAIL AND DRAWER EXAM STRENGTH SENSORY MOTION INTACT POSITIVE PEDAL PULSES. 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 Was a procedure done?: No Back Pain Differential Dx Differential Diagnosis: Fracture, Musculoskeletal Pain X-Ray, Labs, Meds, VS Vital Signs Date Time Temp Pulse Resp B/P (MAP) Pulse Ox O2 Delivery O2 Flow Rate FiO2 03/03/25 23:12 71 17 97 Room Air 03/03/25 23:12 97.8 71 17 136/97 (110) 97 97.8 03/03/25 19:27 97.9 75 13 135/95 (108) 96 97.9 X-Ray, Labs, Meds, VS Comment BILATERAL KNEE X-RAY SHOWS NO ACUTE FRACTURES DISLOCATIONS OR OSSEOUS LESIONS. RIGHT HIP SHOWS ARTHRITIS WITHOUT ANY ACUTE FINDINGS NO FRACTURES OR DISLOCATIONS. LIKELY CONTUSION. ADVISED TO REST ELEVATE ICE AND [id number] TYLENOL NEEDED PER LABELED DOSING INSTRUCTIONS. ADVISED TO FOLLOW UP WITH HIS PCP IN 2 DAYS ER RETURN PRECAUTIONS GIVEN PATIENT INDICATES UNDERSTANDING AGREES WITH DISCHARGE PLAN OF CARE. Time of 1ST Reevaluation: 19:26 Reevaluation 1ST: Unchanged Time of 2ND Reevaluation: 22:54 Reevaluation 2ND: Improved Patient Education/Counseling: Diagnosis, Treatment, Prognosis, Need For Follow Up Family Education/Counseling: No Family Present SEPSIS Sepsis Screen Physician Orders L Knee 3v Xray (03/03/25 20:33) R Knee 3v Xray (03/03/25 20:33) R Hip Complete Xray (03/03/25 20:33) Vital Signs Date Time Temp Pulse Resp B/P (MAP) Pulse Ox O2 Delivery O2 Flow Rate FiO2 03/03/25 23:12 71 17 97 Room Air 03/03/25 23:12 97.8 71 17 136/97 (110) 97 97.8 03/03/25 19:27 97.9 75 13 135/95 (108) 96 97.9 Departure 1 Departure Time of Disposition: 22:54 Impression: Primary Impression: Contusion of hip, right Qualified Codes: S70.01XA - Contusion of right hip, initial encounter Additional Impression: Contusion, knee and lower leg Qualified Codes: S80.00XA - Contusion of unspecified knee, initial encounter; S80.10XA - Contusion of unspecified lower leg, initial encounter Disposition: HOME / SELF CARE / HOMELESS Condition: Stable Discharged With: Self Critical Care Note Critical Care Time?: No Stability Stability form required: CHAVEZ Alvarado Mar 03, 2025 19:27
--- NOTE | 2025-03-03 21:45 | DVH ---
EXAM: XY L KNEE 3V XRAY CLINICAL HISTORY: s/p fall pain/inbjury COMPARISON: XY L KNEE 3V XRAY on DOS: 04/21/24, XY L KNEE 2V XRAY on DOS: 02/08/24 TECHNIQUE: XY L KNEE 3V XRAY Findings/Impression: 3 views of the left knee. There is no evidence of an acute fracture, dislocation, blastic, or lytic lesions. Left total knee arthroplasty. No joint effusion or superficial soft tissue abnormalities.
--- NOTE | 2025-03-03 21:53 | DVH ---
EXAM: XY R KNEE 3V XRAY CLINICAL HISTORY: s/p fal injury/pain COMPARISON: XY L KNEE 3V XRAY on DOS: 04/21/24, XY L KNEE 2V XRAY on DOS: 02/08/24 TECHNIQUE: XY R KNEE 3V XRAY Findings/Impression: 3 views of the right knee. There is no evidence of an acute fracture, dislocation, blastic, or lytic lesions. Mild osteoarthriti s. No radiopaque foreign bodies. No joint effusion or superficial soft tissue abnormalities.
--- NOTE | 2025-03-03 21:55 | DVH ---
EXAM: XY R HIP COMPLETE XRAY CLINICAL HISTORY: s/p fall pain/injury COMPARISON: XY R SCAPULA COMPLETE XRAY on DOS: 04/21/24 TECHNIQUE: XY R HIP COMPLETE XRAY Findings/Impression: 2 views of the right hip with frontal view of the pelvis. There is no evidence of an acute fracture, dislocation, blastic, or lytic lesions. Mild degenerative changes of the right hip. No radiopaque foreign bodies. No joint effusion or superficial soft tissue abnormalities.
[2025-03-03 23:12] VITALS: BP 136/97; PULSE 71; RESP 17; TEMP 97.8; O2SAT 97
== END 2025-03-03 23:16 | disposition home or self-care (01) ==
LOC: ER 19:21
DX: S70.01XA Contusion of right hip, initial encounter (principal); S80.12XA Contusion of left lower leg, initial encounter; S80.11XA Contusion of right lower leg, initial encounter; S80.00XA Contusion of unspecified knee, initial encounter; E11.9 Type 2 diabetes mellitus without complications; I10 Essential (primary) hypertension; Z95.0 Presence of cardiac pacemaker; Z79.84 Long term (current) use of oral hypoglycemic drugs; Z79.899 Other long term (current) drug therapy; X58.XXXA Exposure to other specified factors, initial encounter; Y93.89 Activity, other specified; Y92.89 Other specified places as the place of occurrence of the external cause; Y99.8 Other external cause status
CPT/HCPCS: 73502; 73562